=== PATIENT | male | born 1955 | race Caucasian/White ===

== ENCOUNTER 2019-04-26 08:35 | Day surgery (SDC) | payer MEDICARE, MEDICAID ==
[~2019-04-26] VITALS: Ht 175.3 cm; Wt 94.5 kg
[~2019-04-26 08:35] MED LIST: ASPI-630 PO; ATOR40TA59 PO; BACITRACIN 50,000 UNIT in IV NORMAL SALINE 500ML BAG 500 ML IRR ONE; BUPIVACAINE-EPI 0.5%-1:200000 MPF 30 ML VIAL. INJ ONE; BUPR150T15 PO; DEXAMETHASONE SOD PHOS 20 MG/5 ML VIAL. ONE; HYDROmorphone 2 MG/ML VIAL IV PRN; IV RINGERS,LACTATED 1000ML 1,000 ML IV SCH; LIDOCAINE 1% PF 2 ML VIAL. ID PRN; LIDOCAINE 2% PF 5 ML VIAL. ONE; LISI10TA2 PO; MORPHINE SULFATE 2 MG/ML VIAL. IV PRN; OMEP40CA5 PO; ONDANSETRON PF 4 MG/2 ML VIAL. IV PRN; ONDANSETRON PF 4 MG/2 ML VIAL. ONE; PROCHLORPERAZINE 10 MG/2 ML VIAL. IV PRN; PROP80CA3 PO; PROPOFOL 20 ML IV ONE; TRAZ-118 PO; fentaNYL PF VIAL 100 MCG/2 ML VIAL IV PRN; fentaNYL PF VIAL 100 MCG/2 ML VIAL ONE
[2019-04-26] MEDS ORDERED: SEVOFLURANE 61 TO 120 MINUTES. IH ONE (11:48)
[2019-04-26] MEDS ORDERED: KETOROLAC 30 MG/ML VIAL. ONE (12:48)
--- NOTE | 2019-04-26 13:14 | DISCH ---
DISCHARGE INSTRUCTIONS Condition on Discharge Condition on Discharge: Stable Activity After Discharge Activity Instructions for Disc: Other, see below (no lifting over 20 lbs X 4 weeks) Diet after Discharge Diet after Discharge: Regular Wound Incision Care Wound/Incision Care: Other, see below (keep dressing clean and dry X 72 hours, may then remove and shower) Follow-Up Follow up with: Dr Phelan in 2 weeks, call for appt [phone] JOSS PHELAN MD Apr 26, 2019 13:14
--- NOTE | 2019-04-26 13:18 | PDOC4 ---
Operative Note Operative Note Operative Note: Preoperative Diagnosis: Right inguinal hernia Postoperative Diagnosis: Same Procedure: Right inguinal hernia repair with mesh Surgeon: Hemant Newspaper Stuffer: Deonna BOYER Anesthesia: Gen. EBL: 10 mL Specimen: None Drains: None Complications: None Indication: The patient is a 64-year-old generally who is referred with a moderate size right inguinal hernia. He is interested in surgical repair. The risks of surgery were discussed which include bleeding, infection, pain, recurrence, anesthetic risk, potential need for additional surgery or procedure. He understands and would like to proceed. Description: She was taken to the operating room and placed supine on the operating table. Gen. anesthesia was performed. The right groin was shaved and prepped with ChloraPrep and draped in a standard surgical manner. An incision was made in the skin lines with a scalpel. Cautery dissection was carried onto the external oblique. The aponeurosis was opened down to the external ring. The contents of the inguinal canal were digitally mobilized and encircled with a Elverta drain. Patient had a sizable direct hernia defect present. There was no indirect hernia sac noted. The edges of the hernia defect were clarified. The attenuated transversalis was opened exposing the preperitoneal plane. An extra- large Phasix mesh plug was used to fill the defect. The periphery of the plug was sutured into position with 2-0 Vicryl. The entire inguinal floor was then reinforced with a Prolene keyhole mesh patch. The mesh was sutured to the inguinal floor with 2-0 Vicryl. A slit was made to accommodate the cord structures. Upon completion the mesh rested well providing full coverage of the inguinal floor and the plug remained intact deep to it. The external oblique was closed over the mesh with 2-0 Vicryl. The subcutaneous tissue was closed with 3- 0 Vicryl. The skin was approximated with 4-0 Monocryl. The incision was infiltrated with percent Marcaine with epinephrine. Steri-Strips and a sterile dressing were applied. The patient tolerated the procedure well and was sent to the recovery room in stable condition. At the end of the case all counts were correct. JOSS PHELAN MD Apr 26, 2019 13:18
[2019-04-26] MEDS: fentaNYL PF VIAL 100 MCG/2 ML VIAL IV PRN ×4 (13:37→14:03)
[2019-04-26] MEDS ORDERED: oxyCODONE/APAP 5/325 1 TAB TABLET PO ONE (14:15)
[2019-04-26 14:20] VITALS: BP 116/74
== END 2019-04-26 14:54 | disposition home or self-care (01) ==
LOC: SURG 08:35
PROVIDERS: ATTEND Surgery
DX: K40.90 Unilateral inguinal hernia, without obstruction or gangrene, not specified as recurrent (principal); I10 Essential (primary) hypertension; K21.9 Gastro-esophageal reflux disease without esophagitis; E78.00 Pure hypercholesterolemia, unspecified; F32.9 Major depressive disorder, single episode, unspecified; Z79.899 Other long term (current) drug therapy; Z82.49 Family history of ischemic heart disease and other diseases of the circulatory system; Z98.890 Other specified postprocedural states; Z87.891 Personal history of nicotine dependence; Z79.82 Long term (current) use of aspirin
CPT/HCPCS: 49505; A7015; C1781; J0696; J1100; J1885; J2001; J2270; J2405; J2704; J3010; J3490; J7040